=== PATIENT | male | born 1950 | race African-American/Black ===

== ENCOUNTER 2023-09-13 23:01 | Emergency (ER) | payer MEDICARE, OTHER ==
[~2023-09-13] VITALS: Ht 185.4 cm; Wt 104.1 kg
[2023-09-13 23:15] VITALS: BP 117/78; RESP 16; TEMP 98.4; O2SAT 97
[2023-09-14 04:50] VITALS: PULSE 77
[2023-09-14] MEDS: HYDROcodone-ACET 10/325MG TAB PO ONE (04:52)
== END 2023-09-14 04:59 | disposition home or self-care (01) ==
LOC: ER 23:01 → EDBD 23:01 → ER 09-14 04:59
DX: S30.0XXA Contusion of lower back and pelvis, initial encounter (principal); S70.02XA Contusion of left hip, initial encounter; S70.01XA Contusion of right hip, initial encounter; I11.0 Hypertensive heart disease with heart failure; I50.9 Heart failure, unspecified; E11.9 Type 2 diabetes mellitus without complications; Z98.890 Other specified postprocedural states; W17.89XA Other fall from one level to another, initial encounter; Y93.89 Activity, other specified; Y92.89 Other specified places as the place of occurrence of the external cause; Y99.8 Other external cause status
CPT/HCPCS: 72131; 72192; 93005